=== PATIENT | male | born 1960 | race Caucasian/White ===

== ENCOUNTER 2016-10-09 16:04 | Emergency (ER) | payer OTHER ==
[~2016-10-09] VITALS: Ht 177.8 cm; Wt 78.4 kg
[2016-10-09 16:20] VITALS: Ht 177.8 cm; Wt 78.4 kg
[2016-10-09] MEDS ORDERED: SOD CHLORIDE 0.9% 500 ML IV STA (22:11)
[2016-10-09] MEDS ORDERED: KETOROLAC 30 MG INJ IV STA (22:11)
--- NOTE | 2016-10-09 22:36 | ERD ---
ER Documentation Chief Complaint Date/Time DATE: 10/09/16 TIME: 22:32 Chief Complaint avilez,cp,dizziness,sob HPI 56-year-old male with no past medical history presenting with multiple complaints. For the past week he has had difficulty sleeping, jaw pain, chest pains, generalized body aches, and tingling in both his hands and on his forehead. He had one day of vomiting 1 week ago, which resolved. He is eating and drinking normally. He denies any abdominal pain, diarrhea, constipation, hematochezia, melena. No fevers or chills. He has an appointment with his primary care doctor tomorrow, but states he could not wait because he needs some sleep. He denies any recent illness. No new life stressors. ROS All systems reviewed and are negative except as per history of present illness. Medications Home Meds Active Scripts Lorazepam* (Lorazepam*) 1 Mg Tablet, 1 MG PO Q8H Y for ANXIETY, #10 TAB Prov:ELIZ BISWAS MD 10/09/16 PMhx/Soc Medical and Surgical Hx: pt denies Medical Hx, pt denies Surgical Hx Hx Alcohol Use: Yes (Occasionally) Hx Substance Use: No Smoking Status: Light tobacco smoker FmHx Family History: No coronary disease, No diabetes Physical Exam Vitals Vital Signs Date Time Temp Pulse Resp B/P Pulse Ox O2 Delivery O2 Flow Rate FiO2 10/09/16 23:55 66 16 153/97 100 Room Air 10/09/16 16:20 98.1 84 18 147/84 99 Physical Exam Const: Well-appearing, nontoxic, no distress Head: Atraumatic Eyes: Normal Conjunctiva ENT: Normal External Ears, Nose and Mouth. Bilateral TMJ tenderness, no swelling, no erythema. No trismus. No drooling. Phonation normal Neck: Full range of motion. No meningismus. No cervical lymphadenopathy Resp: Clear to auscultation bilaterally Cardio: Regular rate and rhythm, no murmurs Abd: Soft, non tender, non distended. Normal bowel sounds Skin: No petechiae or rashes Back: No midline or flank tenderness Ext: No cyanosis, or edema Neur: Awake and alert and oriented 3, cranial nerves intact, strength and sensations intact in all 4 extremities, normal speech, normal gait Psych: Normal Mood and Affect Result Diagram: 10/09/16223410/09/162234 Results 24 hrs Laboratory Tests Test 10/09/16 22:30 10/09/16 22:35 Urine Color LT. YELLOW Urine Clarity CLEAR Urine pH 6.0 Urine Specific [place] 1.020 Urine Ketones TRACE Urine Nitrite NEGATIVE Urine Bilirubin NEGATIVE Urine Urobilinogen 0.2 E.U./dL Urine Leukocyte Esterase NEGATIVE Urine Hemoglobin NEGATIVE Urine Glucose NEGATIVE% Urine Total Protein NEGATIVE White Blood Count 6.210^3/ul Red Blood Count 4.8810^6/ul Hemoglobin 15.6g/dl Hematocrit 43.5% Mean Corpuscular Volume 89.1fl Mean Corpuscular Hemoglobin 32.0pg Mean Corpuscular Hemoglobin Concent 35.9g/dl Red Cell Distribution Width 11.9% Platelet Count 87277^3/UL Mean Platelet Volume 10.1fl Neutrophils % 61.7% Lymphocytes % 23.3% Monocytes % 9.7% Eosinophils % 4.0% Basophils % 1.1% Nucleated Red Blood Cells % 0.0/100WBC Neutrophils # 3.810^3/ul Lymphocytes # 1.410^3/ul Monocytes # 0.610^3/ul Eosinophils # 0.310^3/ul Basophils # 0.110^3/ul Nucleated Red Blood Cells # 0.010^3/ul Prothrombin Time 14.5Sec Prothrombin Time Ratio 1.1 INR International Normalized Ratio 1.13 Activated Partial Thromboplast Time 34.1Sec Sodium Level 142mmol/L Potassium Level 3.9mmol/L Chloride Level 102mmol/L Carbon Dioxide Level 28mmol/L Anion Gap 16 Blood Urea Nitrogen 13mg/dl Creatinine 0.86mg/dl Glucose Level 84mg/dl Calcium Level 9.3mg/dl Troponin I < 0.012ng/ml Current Medications Medications (Trade) Dose Ordered Sig/Jeyson Route PRN Reason Start Time Stop Time Status Last Admin Dose Admin Sodium Chloride (NS) 500 ml @ 500 mls/hr Q1H STAT IV 10/09/16 22:11 10/09/16 23:10 DC 10/09/16 22:21 Ketorolac Tromethamine (Toradol) 30 mg ONCE STAT IV 10/09/16 22:11 10/09/16 22:13 DC 10/09/16 22:21 Procedures/MDM EKG #1: Rate/Rhythm: Normal Sinus Rhythm QRS, ST, T-waves: No changes consistent w/ acute ischemia Impression: No evidence of ischemia or arrhythmia EKG #2: Rate/Rhythm: Normal Sinus Rhythm QRS, ST, T-waves: No changes consistent w/ acute ischemia Impression: No evidence of ischemia or arrhythmia Chest x-ray: No acute abnormalities Labs: Unremarkable Patient is presenting with multiple complaints of insomnia and generalized body aches. His vitals are normal and he is afebrile and well-appearing on exam. His labs were all within normal limits. I suspect the patient's symptoms are likely secondary to some degree of insomnia and anxiety. I do not suspect an acute medical emergency. I agreed to discharge the patient with some Ativan for his anxiety and help with his sleep. I recommended he keep his appointment with his primary care doctor tomorrow as he may need further tests to evaluate his symptoms. I believe he is stable for discharge at this time. Return precautions were given. Departure Diagnosis: Primary Impression: Anxiety Additional Impressions: Insomnia Insomnia type: unspecified Qualified Code: G47.00 - Insomnia, unspecified type Jaw pain Paresthesias Condition: Stable EKELIZ GOLDEN MD Oct 09, 2016 22:36
[2016-10-09 23:01] LABS: ADD SCAN DIFF NO
[2016-10-09 23:03] LABS: BASOPHIL # 0.1 10^3/ul (0.0-0.1); BASOPHILS % 1.1 % (0.0-2.0); EOSINOPHILS # 0.3 10^3/ul (0.0-0.5); HEMATOCRIT 43.5 % (42.0-52.0); HEMOGLOBIN 15.6 g/dl (14.0-18.0); LYMPHOCYTES # 1.4 10^3/ul (0.8-2.9); LYMPHOCYTES % 23.3 % (15.0-51.0); MEAN CORPUSCULAR HGB CONC 35.9 g/dl (32.0-37.0); MEAN CORPUSCULAR VOLUME 89.1 fl (82.0-101.0); MEAN PLATELET VOLUME 10.1 fl (7.4-10.4); MONOCYTE # 0.6 10^3/ul (0.3-0.9); MONOCYTES % 9.7 % (0.0-11.0); NEUTROPHIL # 3.8 10^3/ul (1.6-7.5); NEUTROPHILS % 61.7 % (39.0-77.0); PLATELET COUNT 275 10^3/UL (140-415); RED BLOOD COUNT 4.88 10^6/ul (4.70-6.10); RED CELL DISTRIBUTION WIDTH 11.9 % (11.5-14.5); WHITE BLOOD COUNT 6.2 10^3/ul (4.8-10.8)
--- NOTE | 2016-10-09 23:05 | RADRPT ---
PROCEDURE: Portable chest x-ray. CLINICAL INDICATION: Chest pain. TECHNIQUE: Portable AP view of the chest. COMPARISON: None. FINDINGS: No pulmonary edema or conolidation is identified. The cardiac silhouette is magnified. No pleural effusion is seen. There is no pneumothorax. IMPRESSION: 1. No evidence of acute cardiopulmonary disease. RPTAT: HTAR .David Suggs MD, MD Date Time Electronically viewed and signed by .David Suggs MD, on 10/09/2016 23:05 .R/
[2016-10-09 23:13] LABS: ADD UMIC NO; URINE BILIRUBIN (Dip) NEGATIVE (NEGATIVE); URINE BLOOD (Dip) NEGATIVE (NEGATIVE); URINE COLOR LT. YELLOW (YELLOW); URINE GLUCOSE (Dip) NEGATIVE (NEGATIVE); URINE KETONES (Dip) TRACE (NEGATIVE); URINE LEUKOCYTE ESTERASE (Dip) NEGATIVE (NEGATIVE); URINE NITRITE (Dip) NEGATIVE (NEGATIVE); URINE TOTAL PROTEIN (Dip) NEGATIVE (NEGATIVE); URINE UROBILINOGEN (Dip) 0.2 E.U./dL (0.1-1.0)
[2016-10-09 23:14] LABS: CHLORIDE 102 mmol/L (97-110); POTASSIUM 3.9 mmol/L (3.5-5.1); SODIUM 142 mmol/L (135-144)
[2016-10-09 23:16] LABS: INR 1.13; PROTIME 14.5 Sec (12.2-14.2); PT RATIO 1.1
[2016-10-09 23:17] LABS: ANION GAP 16 (8-16); BLOOD UREA NITROGEN 13 mg/dl (7-20); CARBON DIOXIDE 28 mmol/L (21-31); CREATININE 0.86 mg/dl (0.61-1.24); PARTIAL THROMBOPLASTIN TIME 34.1 Sec (25.0-35.0)
[2016-10-09 23:18] LABS: CALCIUM 9.3 mg/dl (8.4-10.2); GLUCOSE 84 mg/dl (70-220)
[2016-10-09 23:31] LABS: TROPONIN-I < 0.012 ng/ml (0.00-0.12)
[2016-10-09] MEDS ORDERED: LORA1TAB PO (23:39)
[2016-10-09 23:55] VITALS: BP 153/97; PULSE 66; RESP 16
== END 2016-10-09 23:56 | disposition home or self-care (01) ==
LOC: E/R 16:04
DX: F41.9 Anxiety disorder, unspecified (principal); R40.2142 Coma scale, eyes open, spontaneous, at arrival to emergency department; G47.00 Insomnia, unspecified; R68.84 Jaw pain; R20.9 Unspecified disturbances of skin sensation; F17.210 Nicotine dependence, cigarettes, uncomplicated; R40.2252 Coma scale, best verbal response, oriented, at arrival to emergency department; R40.2362 Coma scale, best motor response, obeys commands, at arrival to emergency department
CPT/HCPCS: 36415; 71010; 80048; 81003; 84484; 85025; 85610; 85730; 93005; 96374; 99285; J1885; J7040